=== PATIENT | male | born 1980 | race Caucasian/White ===

== ENCOUNTER 2017-11-26 15:17 | Inpatient (IN) | payer BC ==
[~2017-11-26] VITALS: Ht 180.3 cm; Wt 123.9 kg
--- NOTE | ~2017-11-26 | PR ---
[place], [place] PROGRESS NOTE NAME: MENDOZA DE LA TORRE [facility] #: [id number] UNIT #: [id number] ROOM: 415 DOCTOR: KERRIE LINDO MD BIRTHDATE: [birth year] DOS: 11/29/2017 CARDIOLOGY PROGRESS NOTE SUBJECTIVE: The patient was seen in the Cardiology Department just prior to his stress test today. He is a 37-year-old man who presented to the hospital with lightheadedness, chest discomfort and hypertensive urgency. Since he has been in the hospital, he has felt well. He ruled out for myocardial infarction. Blood pressure was 122/70 this morning, his heart rate is 57 and he is feeling better than he did on admission. PHYSICAL EXAMINATION: VITAL SIGNS: Pulse is 57 and regular, blood pressure 122/70. He is afebrile, weighs 123.9 kg and has a body mass index of 38.1. HEENT: Normocephalic and atraumatic. Extraocular muscles are intact. Sclerae are clear. Pupils are round and react to light. The oral mucosa was moist. Tongue is midline. NECK: Supple. He has no jugular distention. Carotids are full. LUNGS: Respirations are unlabored. Chest is clear to auscultation and percussion. He has no presacral edema or chest wall tenderness. HEART: Has a regular rhythm with an S4 gallop, but no S3. PMI is not displaced. He has no precordial heave, lift or thrill. ABDOMEN: Soft and normally active without masses, organomegaly or bruits. EXTREMITIES: Showed no edema. IMPRESSION: 1. Hypertensive urgency. 2. Atypical chest discomfort. 3. Family history of coronary artery disease. 4. Metabolic syndrome. 5. Essential hypertension. 6. Sleep apnea syndrome seems very likely. PLAN: I have reviewed the patient's echocardiogram, which shows normal left ventricular size with mild concentric left ventricular hypertrophy, normal systolic and diastolic function and no valve abnormalities. We will continue his cardiac workup by having him do an exercise stress myocardial perfusion study. If that looks good, then no other cardiac workup would be indicated and we would encourage aggressive risk factor modification only. I thank the hospitalist physicians for asking our advice regarding his care. [place], [place] PROGRESS NOTE NAME: MENDOZA DE LA TORRE [facility] #: [id number] UNIT #: [id number] ROOM: 415 DOCTOR: KERRIE LINDO MD BIRTHDATE: [birth year] KERRIE LINDO MD CM:PNTRANS [id number] KERRIE LINDO MD 11/29/17 2129 interface
--- NOTE | ~2017-11-26 | CON ---
[place], [place] REPORT OF CONSULTATION NAME: MENDOZA DE LA TORRE UNIT #: [id number] ROOM: 415 DOCTOR: KERRIE LINDO MD BIRTHDATE: [birth year] DOS: 11/27/2017 CARDIOLOGY CONSULTATION REASON FOR CONSULTATION: Chest heaviness, hypertensive urgency. HISTORY OF PRESENT ILLNESS: The patient is a 37-year-old man who has no previous history of heart disease, although he does have a family history of heart disease in multiple members. He was in his normal state of health until about 2-3 days ago when he began feeling weak and lightheaded at work. He noticed that his vision was blurry and he felt somewhat short of breath. He checked his blood pressure on several occasions and found that it was high. At one point, it was 161/120 and later, it was 180/113. Because of this, he decided to come to the Emergency Room. His electrocardiogram showed sinus rhythm with a left anterior fascicular block, but no acute ST changes. Serial troponin levels were normal. His chest discomfort was relieved with rest in the Emergency Room and we were asked to assist in his assessment. At this point, he appears anxious, but denies any chest pain or dyspnea. The patient does admit that he has been very fatigued lately. He does not sleep well and his does note that he snores heavily and stops breathing frequently. His [place] sleepiness scale is 14, which is extremely high and suggested he does have a sleeping disorder. PAST HISTORY: Includes: 1. Essential hypertension. 2. Gastroesophageal reflux disease. 3. Prediabetes. 4. Metabolic syndrome. 5. Probable sleep apnea. MEDICATIONS: Prior to admission included lisinopril 10 mg per day. ALLERGIES: The patient has allergies to MEPERIDINE and DIAZEPAM. FAMILY HISTORY: The patient's mother began having heart disease with heart attacks at age 44. His father had a heart attack in his 50s. His father also has obstructive sleep apnea. His maternal grandfather has had 3 heart attacks in his 50s. REVIEW OF SYSTEMS: The patient denies diplopia or loss of vision. He does admit to excessive sleepiness and has a 14 on the [place] sleepiness scale. He denies focal weakness. He did have some lightheadedness, but no syncope prior to admission. He denied nausea or vomiting. He denied fevers, chills, sweats or recent weight change. He denied nausea or vomiting. He denies hemoptysis or hematemesis. He denies change in bowel or bladder habits. He denies blood in his stools or urine. He denies any peripheral edema. He denies any blood clots in his legs. He denies any skin rashes. He denies claudications. He has not had heat or cold intolerance and denies polyuria, polydipsia. Remainder of the [place], [place] REPORT OF CONSULTATION NAME: MENDOZA DE LA TORRE UNIT #: [id number] ROOM: 415 DOCTOR: KERRIE LINDO MD BIRTHDATE: [birth year] review of systems is negative except as noted above. SOCIAL HISTORY: The patient is and lives with his . He works as a airline security representative. He smokes a few cigarettes on the weekends. He only drinks alcohol on the weekends. PHYSICAL EXAMINATION: GENERAL: The patient is an obese white male who is awake, alert and oriented. VITAL SIGNS: Pulse is 72 and regular, blood pressure 126/86. He weighs 123.9 kg and has a body mass index of 38.1. HEENT: Normocephalic and atraumatic. Extraocular muscles are intact. Sclerae are clear. Pupils equal, round and react to light. The oral mucosa is moist. Tongue is midline. NECK: Supple. He has no jugular distention. Carotids are full and I heard no bruits. He had no neck or supraclavicular masses. LUNGS: Respirations are unlabored. His chest is clear to auscultation and percussion. He has no presacral edema or chest wall tenderness. CARDIOVASCULAR: His heart has a regular rhythm. He has a fourth heart sound, but no third heart sound. The PMI is not displaced. There is no precordial heave, lift or thrill. ABDOMEN: Soft and normally active without masses, organomegaly or bruits. EXTREMITIES: Showed no edema. Peripheral pulses are easily palpated in the feet bilaterally. LABORATORY DATA: I reviewed his electrocardiogram, which showed sinus rhythm with left anterior fascicular block, but no acute ST or T-wave changes. Serial cardiac troponin levels have been normal. IMPRESSION: 1. Hypertensive urgency. 2. Atypical chest discomfort. 3. Family history of coronary artery disease. 4. Metabolic syndrome. 5. Essential hypertension. 6. Occasional cigarette use. 7. Sleep apnea syndrome is very likely. PLAN: I agree with using lisinopril to control his blood pressure. A thiazide diuretic may be a better choice than amlodipine as a second agent. We will be obtaining an echocardiogram and an exercise myocardial perfusion study. Risk factor modification will be important in his ongoing care as well. After discharge, he should be evaluated for sleep apnea syndrome and treated appropriately. Further recommendations from a cardiac point of view will depend upon the results of his stress test and echocardiogram. We thank the hospitalist physicians for asking our advice regarding his assessment and care. [place], [place] REPORT OF CONSULTATION NAME: MENDOZA DE LA TORRE UNIT #: [id number] ROOM: [facility] DOCTOR: KERRIE LINDO MD BIRTHDATE: [birth year] KERRIE LINDO MD CM:CONSTR:REPORT OF CONSULTATION 1628 11/29/17 1729 interface
--- NOTE | ~2017-11-26 | EKG ---
[place], [place] ELECTROCARDIOGRAM REPORT NAME: MENDOZA DE LA TORRE UNIT #: [id number] ROOM: 415 DOCTOR: FRANKLYN DRAFT REPORT BIRTHDATE: [birth year] [facility] Test Date: 2017-11-26 Test Time: 15:24:13 Pat Name: MENDOZA DE LA TORRE Department: ER Room: 415 Gender: M [employer] Helper: CAIT : 1980 Requested By: ERIN AYERS Order Number: [id number] Reading MD: Tomas Lyn MD Measurements Intervals [place] Rate: 79 P: ID: QRS: -47 QRSD: 110 T: 2 QT: 388 QTc: 445 Interpretive Statements NSR Left anterior fascicular block Borderline ST elevation, anterior leads Electronically Signed On 11-26-2017 19:09:41 PDT by Tomas Lyn MD CM:EKGRPT:ELECTROCARDIOGRAM REPORT [id number] ERIN DUDLEY DRAFT REPORT ERIN AYERS DO
--- NOTE | ~2017-11-26 | PR ---
[place], [place] PROGRESS NOTE [id number] #: [id number] ROOM: 415 DOCTOR: KERRIE LINDO MD BIRTHDATE: [birth year] DOS: 11/28/2017 SUBJECTIVE: The patient was seen at his bedside today 11/28/2017 for followup of his hypertensive urgency, lightheadedness and chest discomfort. Since he has been in the hospital, he has not had any significant arrhythmias and his blood pressure has come under control. Troponin levels have been normal. The patient does seem very anxious today and had a variety of questions regarding how the stress test would work, what foods he should eat, what medicines he should be on, etc. PHYSICAL EXAMINATION: VITAL SIGNS: Today, his pulse is 60 and regular, blood pressure is 120/78. He weighs 123.9 kg and has a body mass index of 38.1. NECK: Supple. He has no jugular distention. Carotids are full. He has no bruits. He has no neck or supraclavicular masses. LUNGS: Respirations are unlabored. His chest is clear to auscultation and percussion. He has no presacral edema or chest wall tenderness. HEART: Has a regular rhythm with a soft S4 gallop, but no S3 or murmur. PMI is not displaced. ABDOMEN: Soft and normally active without masses, organomegaly or bruits. EXTREMITIES: Showed no edema. Peripheral pulses are easily palpated bilaterally. IMPRESSION: 1. Hypertensive urgency. 2. Atypical chest discomfort. 3. Family history of coronary artery disease. 4. Metabolic syndrome. 5. Essential hypertension. 6. Occasional cigarette use. 7. Sleep apnea syndrome seems very likely. PLAN: The patient will undergo an exercise stress myocardial perfusion study and echocardiogram tomorrow. Further recommendations will depend upon the results of the test. [facility] Cardiology and I thank the hospitalist physicians for asking our advice regarding the patient's care. [place], [place] PROGRESS NOTE NAME[facility] [id number] UNIT #: [id number] ROOM: 415 DOCTOR: KERRIE LINDO MD BIRTHDATE: [birth year] KERRIE LINDO MD CM:PNTRANS [id number] KERRIE LINDO MD 11/29/17 0245 interface
[2017-11-26 15:18] VITALS: BP 134/89
[2017-11-26 15:59] VITALS: BP 103/70; BP 135/87; BP 136/87
[2017-11-26 16:00] LABS: BASO # 0.1 10*3/uL (0.0-0.1); EOS # 0.5 10*3/uL (0.0-0.4); EOS % 5.4 % (1.0-4.0); HEMATOCRIT 47.3 % (42.0-52.0); HEMOGLOBIN 15.6 g/dl (14.0-18.0); LYMPH # 1.8 10*3/uL (1.3-4.4); LYMPH % 20.7 % (27.0-41.0); MEAN CELL VOLUME 93.1 fl (80.0-94.0); MEAN CORPUSCULAR HGB 30.7 pg (27.0-31.0); MEAN PLATELET VOLUME 9.5 fl (9.6-12.3); MONO # 0.7 10*3/uL (0.1-1.0); MONO % 8.2 % (3.0-9.0); NEUT # 5.6 10*3/uL (2.3-7.9); NEUT % 64.5 % (47.0-73.0); PLATELET COUNT AUTOMATED 252 10*3/uL (130-400); RED BLOOD COUNT 5.08 10*6/uL (4.50-5.90); RED CELL DISTRI WIDTH 12.5 % (0-14.5); WHITE BLOOD COUNT 8.7 10*3/uL (4.8-10.8)
[2017-11-26 16:09] LABS: ACT PARTIAL THROMBO TIME 23.2 SECONDS (20.8-31.5); INTERNATIONAL NORM RATIO 0.9 (2.0-3.5)
[2017-11-26 16:18] LABS: ALBUMIN 3.9 gm/dl (3.1-4.5); BUN 15 mg/dl (7-24); CHLORIDE 106 mmol/L (98-107); CREATININE 1.14 mg/dL (0.70-1.30); LIPASE 83 U/L (73-393); POTASSIUM 3.9 mmol/L (3.5-5.1); SGOT/AST 18 IU/L (3-35); SGPT/ALT 32 U/L (12-78); SODIUM 139 mmol/L (136-145); TOTAL PROTEIN 7.6 gm/dL (6.4-8.2)
[2017-11-26 16:19] LABS: ALKALINE PHOSPHATASE 66 U/L (45-117); TROPONIN I < 0.015 ng/ml (<0.045)
[2017-11-26 17:01] VITALS: BP 142/95
[2017-11-26 17:43] VITALS: BP 152/94
[2017-11-26 20:00] VITALS: BP 149/84
[2017-11-26 21:03] LABS: URINE AMPHETAMINES < 1000 (1000ng/ml); URINE BARBITURATES < 200 (200ng/ml); URINE BENZODIAZEPINES < 200 (200ng/ml); URINE CANNABINOIDS (THC) < 50 (50ng/ml); URINE COCAINE < 300 (300ng/ml); URINE METHADONE < 300 (300ng/ml); URINE OPIATES < 300 (300ng/ml)
[2017-11-26 21:04] LABS: URINE PHENCYCLIDINE < 25 (25ng/ml)
[2017-11-26 21:34] LABS: FREE T4 0.81 ng/dl (0.76-1.46); TROPONIN I 0.017 ng/ml (<0.045)
[2017-11-26 21:40] LABS: THYROID STIM HORMONE (HS) 0.88 uIU/ml (0.358-4.75)
[2017-11-27] VITALS: BP 137/80
[2017-11-27 05:59] LABS: BUN 12 mg/dl (7-24); CHLORIDE 106 mmol/L (98-107); CREATININE 1.14 mg/dL (0.70-1.30); POTASSIUM 4.1 mmol/L (3.5-5.1); SODIUM 140 mmol/L (136-145)
[2017-11-27 06:10] LABS: BASO # 0.1 10*3/uL (0.0-0.1); BASO % 0.8 % (0.0-1.0); EOS # 0.5 10*3/uL (0.0-0.4); EOS % 5.4 % (1.0-4.0); HEMOGLOBIN 15.6 g/dl (14.0-18.0); LYMPH # 2.2 10*3/uL (1.3-4.4); LYMPH % 25.9 % (27.0-41.0); MEAN CELL VOLUME 94.7 fl (80.0-94.0); MEAN CORPUSCULAR HGB 30.8 pg (27.0-31.0); MEAN CORPUSCULAR HGB CONC 32.5 g/dl (33.0-37.0); MEAN PLATELET VOLUME 9.8 fl (9.6-12.3); MONO # 0.7 10*3/uL (0.1-1.0); MONO % 8.9 % (3.0-9.0); NEUT # 4.9 10*3/uL (2.3-7.9); NEUT % 58.9 % (47.0-73.0); PLATELET COUNT AUTOMATED 247 10*3/uL (130-400); RED BLOOD COUNT 5.07 10*6/uL (4.50-5.90); RED CELL DISTRI WIDTH 12.5 % (0-14.5); WHITE BLOOD COUNT 8.4 10*3/uL (4.8-10.8)
[2017-11-27 08:00] VITALS: BP 122/80; BP 136/78
[2017-11-27 12:00] VITALS: BP 126/86
[2017-11-27 16:00] VITALS: BP 124/71
[2017-11-27 20:00] VITALS: BP 140/79
[2017-11-28] VITALS: BP 131/69
[2017-11-28 06:04] LABS: BASO # 0.1 10*3/uL (0.0-0.1); BASO % 0.6 % (0.0-1.0); EOS # 0.5 10*3/uL (0.0-0.4); EOS % 5.7 % (1.0-4.0); HEMOGLOBIN 15.6 g/dl (14.0-18.0); LYMPH # 2.4 10*3/uL (1.3-4.4); MEAN CELL VOLUME 94.7 fl (80.0-94.0); MEAN CORPUSCULAR HGB 30.8 pg (27.0-31.0); MEAN CORPUSCULAR HGB CONC 32.5 g/dl (33.0-37.0); MEAN PLATELET VOLUME 9.8 fl (9.6-12.3); MONO # 0.8 10*3/uL (0.1-1.0); MONO % 8.6 % (3.0-9.0); NEUT # 5.7 10*3/uL (2.3-7.9); NEUT % 59.9 % (47.0-73.0); PLATELET COUNT AUTOMATED 244 10*3/uL (130-400); RED BLOOD COUNT 5.07 10*6/uL (4.50-5.90); RED CELL DISTRI WIDTH 12.6 % (0-14.5); WHITE BLOOD COUNT 9.4 10*3/uL (4.8-10.8)
[2017-11-28 06:29] LABS: BUN 13 mg/dl (7-24); CHLORIDE 106 mmol/L (98-107); CREATININE 1.16 mg/dL (0.70-1.30); POTASSIUM 4.2 mmol/L (3.5-5.1); SODIUM 139 mmol/L (136-145)
[2017-11-28 08:00] VITALS: BP 111/83; BP 120/62
[2017-11-28 12:00] VITALS: BP 120/78
[2017-11-28 16:00] VITALS: BP 141/97
[2017-11-28 20:00] VITALS: BP 143/93
[2017-11-29 00:45] VITALS: BP 128/84
[2017-11-29 08:00] VITALS: BP 122/70
[2017-11-29 12:00] VITALS: BP 139/99
[2017-11-29 16:00] VITALS: BP 148/92
[2017-11-29 20:00] VITALS: BP 132/82
[2017-11-30] VITALS: BP 140/94
[2017-12-08] MEDS ORDERED: ZESTRIL10 MG PO (00:33)
[2017-12-08] MEDS ORDERED: METOPROLOL SUCC50 M1 PO (00:33)
[2017-12-08] MEDS ORDERED: PRILOSEC20 M1 PO (00:33)
[2017-12-08] MEDS ORDERED: ASPIRIN CHEWABL81 MG PO (00:33)
[2017-12-08] MEDS ORDERED: LIPITOR10 MG PO (00:33)
[2017-12-09] MEDS ORDERED: CRESTOR5 MG PO (13:38)
[2017-12-09] MEDS ORDERED: VITAMIN D5000 UNI1 PO (13:38)
[2017-12-09] MEDS ORDERED: GOOD NEIGHBOR M25 M1 PO (13:59)
== END 2017-11-30 07:20 | disposition other institution (70) | DRG 313 ==
LOC: ED 15:17 → 4E 16:43 → EDHOLD 16:43 → 4E 17:15
PROVIDERS: Emergency Medicine; Family Medicine; Internal Medicine; Surgery
PROC: 3E073KZ Introduction of Other Diagnostic Substance into Coronary Artery, Percutaneous Approach (ICD-10-PCS; principal; 2017-11-29)
PROC: 4A02XM4 Measurement of Cardiac Total Activity, External Approach (ICD-10-PCS; principal; 2017-11-29)
DX: R07.89 Other chest pain (principal); E88.81 Metabolic syndrome and other insulin resistance; I11.9 Hypertensive heart disease without heart failure; E66.9 Obesity, unspecified; I16.0 Hypertensive urgency; K21.9 Gastro-esophageal reflux disease without esophagitis; Z82.49 Family history of ischemic heart disease and other diseases of the circulatory system; Z71.6 Tobacco abuse counseling; Z72.0 Tobacco use; Z88.8 Allergy status to other drugs, medicaments and biological substances; Z80.8 Family history of malignant neoplasm of other organs or systems; Z68.38 Body mass index [BMI] 38.0-38.9, adult

== ENCOUNTER → 2019-09-21 | Outpatient (CLI) | payer BC ==
[~2019-09-21] MED LIST: ASPIRIN CHEWABL81 MG PO; CRESTOR5 MG PO; GOOD NEIGHBOR M25 M1 PO; LIPITOR10 MG PO; METOPROLOL SUCC50 M1 PO; PRILOSEC20 M1 PO; VITAMIN D5000 UNI1 PO; ZESTRIL10 MG PO
[2019-09-21 10:45] LABS: BASO % 0.4 % (0.0-1.0); EOS # 0.3 10*3/uL (0.0-0.4); EOS % 3.2 % (1.0-4.0); HEMATOCRIT 46.5 % (42.0-52.0); LYMPH # 2.4 10*3/uL (1.3-4.4); LYMPH % 22.6 % (27.0-41.0); MEAN CELL VOLUME 92.8 fl (80.0-94.0); MEAN CORPUSCULAR HGB 30.7 pg (27.0-31.0); MEAN CORPUSCULAR HGB CONC 33.1 g/dl (33.0-37.0); MEAN PLATELET VOLUME 9.6 fl (9.6-12.3); MONO # 0.9 10*3/uL (0.1-1.0); MONO % 8.3 % (3.0-9.0); NEUT # 6.9 10*3/uL (2.3-7.9); NEUT % 64.9 % (47.0-73.0); PLATELET COUNT AUTOMATED 281 10*3/uL (130-400); RED BLOOD COUNT 5.01 10*6/uL (4.50-5.90); RED CELL DISTRI WIDTH 12.9 % (0-14.5); WHITE BLOOD COUNT 10.7 10*3/uL (4.8-10.8)
[2019-09-21 11:01] LABS: ALBUMIN 4.2 gm/dl (3.1-4.5); ALKALINE PHOSPHATASE 77 U/L (45-117); BUN 21 mg/dl (7-24); CHLORIDE 105 mmol/L (98-107); CHOLESTEROL 156 mg/dL (<200); CREATININE 1.21 mg/dL (0.70-1.30); HDL CHOLESTEROL 61 mg/dl (40-60); LDL CHOLESTEROL 78 mg/dL (9-159); POTASSIUM 3.9 mmol/L (3.5-5.1); SGOT/AST 36 IU/L (3-35); SGPT/ALT 45 U/L (12-78); SODIUM 139 mmol/L (136-145); TOTAL PROTEIN 8.1 gm/dL (6.4-8.2); TRIGLYCERIDES 84 mg/dl (<150); VLDL CHOLESTEROL 17 mg/dL (6-40)
== END | disposition home or self-care (01) ==
LOC: LAB 09:53
PROVIDERS: Family Medicine
DX: M77.31 Calcaneal spur, right foot (principal); I34.0 Nonrheumatic mitral (valve) insufficiency; M79.672 Pain in left foot; M79.2 Neuralgia and neuritis, unspecified; Z68.41 Body mass index [BMI] 40.0-44.9, adult; E66.01 Morbid (severe) obesity due to excess calories